=== PATIENT | female | born 1985 | race Two or more races ===

== ENCOUNTER 2021-07-08 11:00 | Inpatient (IN) | payer OTHER ==
[~2021-07-08] VITALS: Ht 165.1 cm; Wt 59.0 kg
[2021-07-08] MEDS ORDERED: LEVOTHYROXINE25 MCG PO (13:43)
== END 2021-07-12 17:25 | disposition home or self-care (01) | DRG 735 ==
LOC: O/R 07-10 05:53 → OB/GYN 07-10 11:00
PROVIDERS: ADMIT Obstetrics & Gynecology Gynecologic Oncology; ATTEND Obstetrics & Gynecology Gynecologic Oncology
PROC: 0UT90ZZ Resection of Uterus, Open Approach (ICD-10-PCS; 2021-07-10)
PROC: 0UT70ZZ Resection of Bilateral Fallopian Tubes, Open Approach (ICD-10-PCS; 2021-07-10)
PROC: 0UT20ZZ Resection of Bilateral Ovaries, Open Approach (ICD-10-PCS; 2021-07-10)
PROC: 07TC0ZZ Resection of Pelvis Lymphatic, Open Approach (ICD-10-PCS; principal; 2021-07-10 22:45)
DX: C53.0 Malignant neoplasm of endocervix (principal); Z20.822 Contact with and (suspected) exposure to COVID-19